=== PATIENT | male | born 1980 | race Caucasian/White ===

== ENCOUNTER 2016-07-15 07:50 | Emergency (ER) | payer SELFPAY ==
[2016-07-15] MEDS ORDERED: Acetaminophen 500 MG TAB ONE (08:29)
[2016-07-15] MEDS ORDERED: Ciprofloxacin 500 MG TAB ONE (08:29)
== END 2016-07-15 08:32 | disposition home or self-care (01) ==
LOC: MADERS 07:50
DX: K02.9 Dental caries, unspecified (principal); F17.210 Nicotine dependence, cigarettes, uncomplicated
CPT/HCPCS: 99282